=== PATIENT | male | born 1975 ===

== ENCOUNTER 2021-08-23 09:46 | Outpatient (REF) | payer OTHER, SELFPAY | END 2021-08-23 09:47 | disposition home or self-care (01) | LOC: HO.LAB 09:46 | PROVIDERS: Visit Provider Hospitalist | DX: Z20.822 Contact with and (suspected) exposure to COVID-19 (principal) | CPT/HCPCS: U0003; U0005 ==

== ENCOUNTER 2021-08-30 18:21 | Outpatient (REF) | payer OTHER, SELFPAY ==
[2021-08-30 19:02] LABS: Influenza A PCR NEGATIVE (Negative); Influenza B PCR NEGATIVE (Negative); Resp Syncy Virus RNA Qual PCR NEGATIVE (Negative); SARS COV2 PCR INHOUSE NEGATIVE (Negative)
== END 2021-08-30 18:22 | disposition home or self-care (01) ==
LOC: HO.LNP 18:21
PROVIDERS: Visit Provider Hospitalist
DX: J45.20 Mild intermittent asthma, uncomplicated (principal); R06.00 Dyspnea, unspecified; Z20.822 Contact with and (suspected) exposure to COVID-19
CPT/HCPCS: 0241U

== ENCOUNTER 2021-08-31 07:50 | Outpatient (REF) | payer OTHER, SELFPAY ==
--- NOTE | ~2021-08-31 | XR_ITS ---
EXAMINATION: XR CHEST CLINICAL INFORMATION: Mild intermittent asthma, uncomplicated COMPARISON: None TECHNIQUE: 2 views of the chest were obtained. FINDINGS: No significant abnormality is noted involving the heart, lungs, mediastinum, bony thorax or soft tissues. XR/XR chest 2V IMPRESSION: Unremarkable examination.
== END 2021-08-31 07:51 | disposition home or self-care (01) ==
LOC: HO.XRAY 07:50
PROVIDERS: Visit Provider Hospitalist
DX: J45.20 Mild intermittent asthma, uncomplicated (principal); R06.00 Dyspnea, unspecified
CPT/HCPCS: 71046